=== PATIENT | female | born 1965 | race Caucasian/White ===

== ENCOUNTER 2017-11-03 21:48 | Emergency (ER) | payer SELFPAY ==
[~2017-11-03] VITALS: Ht 160 cm; Wt 67.7 kg
[2017-11-04 00:18] VITALS: BP 161/84
== END 2017-11-04 00:46 | disposition home or self-care (01) ==
LOC: EME 21:48
DX: F43.0 Acute stress reaction (principal); Z88.0 Allergy status to penicillin
CPT/HCPCS: 90837; 99281; 99283